=== PATIENT | male | born 1975 | race Caucasian/White ===

== ENCOUNTER 2021-06-10 11:59 | Emergency (ER) | payer BC, SELFPAY ==
[2021-06-10 12:11] VITALS: BP 147/97; PULSE 75; RESP 16; TEMP 36.3; O2SAT 98
--- NOTE | 2021-06-10 12:35 | ED.EAR ---
HPI - Ear Problem General Chief complaint: Ear Stated complaint: Ear Pain Time Seen by Provider: 06/10/21 12:35 Source: patient, RN notes reviewed and old records reviewed Mode of arrival: ambulatory Limitations: no limitations History of Present Illness HPI Narrative: 45 year old male presents to [facility] care with complaints of right ear pain which started yesterday. He reports that initially it felt itchy and then 0200 this morning his right ear started throbbing and reports that his pain is 8/10. He also states that pain is causing some discomfort to his head and behind his right eye. Patient denies any known fevers, chills, or sweats, denies any sinus congestion, drainage, cough or sore throat. He reports that he has decreased hearing in his right ear, has been taking Naprosyn for his discomfort. MD Complaint: ear pain Location: right ear Duration: constant Severity: severe Relieving factors: nothing Exacerbating factors: other (palpation of ear) Discharge from ear: Reports no Associated symptoms ear: decreased hearing, headache, external ear tenderness and other Treatment prior to arrival: other (naprosyn) Related Data Home Medications Medication Instructions Recorded Confirmed BuSpar 06/10/21 Cymbalta 06/10/21 Wellbutrin 06/10/21 omeprazole 06/10/21 Allergies Allergy/AdvReac Type Severity Reaction Status Date / Time No Known Allergies Allergy Verified 06/10/21 12:14 Review of Systems Review of Systems: CONSTITUTIONAL: Denies fever, chills, or sweats. EYES: Denies visual changes, redness, or discharge. ENT: Denies rhinorrhea, congestion, no sore throat, Positive for right ear pain. CARDIOVASCULAR: Denies chest pain, palpitations, or edema. RESPIRATORY: Denies cough or dyspnea. GASTROINTESTINAL: Denies abdominal pain, nausea, vomiting, or diarrhea. GENITOURINARY: Denies dysuria or hematuria. SKIN: Denies rash or itching. MUSCULOSKELETAL: Denies back pain, joint pain, or myalgia. NEUROLOGIC: Positive for headache,no numbness, or weakness. PSYCHIATRIC: History of anxiety or depression. All systems reviewed & are unremarkable except as noted in HPI and below PMFSH Past Medical History Medical History (Updated 06/14/21 @ 09:12 by Vianca Llanos NP) Anxiety and depression GERD (gastroesophageal reflux disease) Surgical History Surgical History (Updated 06/14/21 @ 08:58 by Vianca Llanos NP) No history of previous surgery Family History Family History (Updated 06/14/21 @ 08:58 by Vianca Llanos NP) Grandparent Hypertension Diabetes mellitus Father Hypertension Social History Social History (Updated 06/14/21 @ 08:59 by Vianca Llanos NP) Smoking status: Never smoker Alcohol intake: former Substance use: former Substance use type: opiates Last use: no use for 9 months Living arrangements: with family Gender identity (if verbalized by the patient): Male Comments At time of signature, agree with nursing past medical, surgical, social and family history. There is no relevant family history pertinent to the presenting complaint Exam Narrative: GENERAL: Well-appearing, well-nourished, and in no acute distress. HEAD: Normocephalic, atraumatic. EYES: PERRLA and EOMI. ENT: Nares clear, no rhinorrhea or epistaxis. Mucous membranes moist. Right TM red with ear canal swollen and red no drainage noted, tragus tenderness noted, Left TM normal with good light reflex, throat pink with no exudates or lesions no tonsil enlargement noted. NECK: Supple. no lymphadenopathy CHEST: Clear to auscultation. No respiratory distress.SAO2 98% on room air HEART: Regular rate and rhythm. No murmur heard. Normal peripheral pulses. ABDOMEN: Soft, nontender, nondistended, normal active bowel sounds. EXTREMITIES: Normal range of motion. No edema. SKIN: Warm, dry, no rash. NEURO: No focal deficits. Alert and oriented x3. Course Vital Signs Vital signs: Vital Signs Temperature 3
== END 2021-06-10 13:05 | disposition home or self-care (01) ==
PROVIDERS: Emergency Provider Registered Nurse
DX: H60.311 Diffuse otitis externa, right ear (principal); H65.01 Acute serous otitis media, right ear; K21.9 Gastro-esophageal reflux disease without esophagitis
CPT/HCPCS: 99213; G0463